=== PATIENT | female | born 1955 | race Caucasian/White ===

== ENCOUNTER 2023-02-15 09:09 | Emergency (ER) | payer OTHER ==
[2023-02-15 09:37] VITALS: BP 133/71; PULSE 80; RESP 18; TEMP 97.3; BMI 28.3
== END 2023-02-15 11:41 | disposition home or self-care (01) ==
LOC: JER 09:09 → JERFT 09:09
DX: M79.675 Pain in left toe(s) (principal); R22.42 Localized swelling, mass and lump, left lower limb; L03.032 Cellulitis of left toe
CPT/HCPCS: 73630-TC-LT; 99283-25

== ENCOUNTER 2023-04-15 17:45 | Emergency (ER) | payer MEDICARE, OTHER ==
[2023-04-15 18:08] VITALS: BP 119/62; PULSE 76; TEMP 98.7; BMI 29.7
[2023-04-15] MEDS ORDERED: SULFAMETHOXAZOLE/TRIMETHOPRIM 800MG/160MG D.S. TABLET PO ONE (18:27)
[2023-04-15] MEDS ORDERED: SULFAMETHOXAZOLE/TRIMETHOPRIM 800MG/160MG D.S. TABLET ONE (18:31)
== END 2023-04-15 18:43 | disposition home or self-care (01) ==
LOC: JER 17:45 → JERFT 17:45
DX: L03.115 Cellulitis of right lower limb (principal); L53.9 Erythematous condition, unspecified; R20.9 Unspecified disturbances of skin sensation
CPT/HCPCS: 99283-25

== ENCOUNTER 2024-05-11 10:07 | Emergency (ER) | payer MEDICARE, OTHER ==
[2024-05-11 10:23] VITALS: BMI 28.3
[2024-05-11] MEDS ORDERED: ACETAMINOPHEN 325 MG TABLET (FP) ONE (11:32)
[2024-05-11] MEDS: ACETAMINOPHEN 325 MG TABLET (FP) PO ONE (11:42)
[2024-05-11 14:40] VITALS: RESP 16; TEMP 98.3
[2024-05-11] MEDS ORDERED: KETOROLAC TROMETHAMINE 15 MG/ML VIAL ONE (15:09)
[2024-05-11] MEDS: KETOROLAC TROMETHAMINE 15 MG/ML VIAL IVPUSH ONE (15:36)
[2024-05-11 15:45] LABS: BASO % 0.5 % (0-2.0); EOS % 0.9 % (0-4.5); HEMOGLOBIN 12.2 GM/dL (10.7-15.3); LYMPH % 23.7 % (8-40); MCH 29.9 pg (25.7-33.7); MCHC 33.8 g/dl (32.0-36.0); MEAN CELL VOLUME 88.2 fl (80-96); MEAN PLT VOLUME 7.2 fl (7.5-11.1); MONO % 6.1 % (3.8-10.2); NEUT % 68.8 % (42.8-82.8); PLATELET COUNT 395 10^3/uL (134-434); RBC 4.08 M/mm3 (3.60-5.2); RDW 13.7 % (11.6-15.6); WHITE BLOOD COUNT 7.3 K/mm3 (4.0-10.0)
[2024-05-11 16:00] LABS: POTASSIUM 3.7 mmol/L (3.5-5.1)
[2024-05-11 16:02] LABS: BLOOD UREA NITROGEN 11.5 mg/dL (7-18); CALCIUM 10.1 mg/dL (8.5-10.1)
[2024-05-11 16:05] LABS: CREATININE 0.6 mg/dL (0.55-1.3)
[2024-05-11 16:07] LABS: BILIRUBIN,TOTAL 0.7 mg/dL (0.2-1); TOT PROT 7.6 g/dl (6.4-8.2)
[2024-05-11 16:25] VITALS: BP 134/74; PULSE 72
== END 2024-05-11 16:25 | disposition home or self-care (01) ==
LOC: JER 10:07
PROC: 3E0333Z Introduction of Anti-inflammatory into Peripheral Vein, Percutaneous Approach (ICD-10-PCS; principal; 2024-05-11)
DX: M54.50 Low back pain, unspecified (principal); M25.551 Pain in right hip; R42 Dizziness and giddiness; W19.XXXA Unspecified fall, initial encounter
CPT/HCPCS: 36415; 72131-TC; 72192-TC; 80053; 85025; 96374; 99284-25

== ENCOUNTER 2025-01-03 01:25 | Emergency (ER) | payer OTHER ==
[2025-01-03 01:52] VITALS: BP 151/86; PULSE 81; RESP 18; TEMP 97.7
[2025-01-03] MEDS ORDERED: ACETAMINOPHEN 325 MG TABLET (FP) ONE (02:28)
[2025-01-03] MEDS: ACETAMINOPHEN 325 MG TABLET (FP) PO ONE (02:32)
== END 2025-01-03 05:34 | disposition home or self-care (01) ==
LOC: JER 01:25
DX: R51.9 Headache, unspecified (principal)
CPT/HCPCS: 0241U-QW; 70450-TC; 71045-TC-FY; 82962; 99284-25